=== PATIENT | male | born 2000 | race Caucasian/White ===

== ENCOUNTER 2024-02-28 06:25 | Emergency (ER) | payer BC, OTHER ==
[2024-02-28 06:45] VITALS: BP 127/84
[2024-02-28] MEDS: predniSONE 20 MG Tab PO ONE (06:56)
[2024-02-28] MEDS: Albuterol/Ipratropium 3.0-0.5 MG/3 ML Neb Soln NEB ONE (06:57)
[2024-02-28 07:20] LABS: CORONAVIRUS COVID-19 NAA NEGATIVE (NEGATIVE); INFLUENZA A NAA NEGATIVE (NEGATIVE); INFLUENZA B NAA NEGATIVE (NEGATIVE); RESPIRATORY SYNCYTIAL VIR NAA NEGATIVE (NEGATIVE)
[2024-02-28] MEDS: Albuterol 0.083% 2.5 MG/3 ML Neb Soln NEB ONE (07:31)
[2024-02-28 07:57] VITALS: PULSE 90
== END 2024-02-28 07:50 | disposition home or self-care (01) ==
LOC: KA.ED 06:25
DX: J06.9 Acute upper respiratory infection, unspecified (principal); Z79.51 Long term (current) use of inhaled steroids; Z79.899 Other long term (current) drug therapy
CPT/HCPCS: 0241U; 71046; 94640; 99285; J7512; 99283; J7613-GY; J7620-GY